=== PATIENT | female | born 1985 | race Caucasian/White ===

== ENCOUNTER 2020-05-02 17:15 | Emergency (ER) | payer OTHER, SELFPAY ==
[2020-05-02 17:22] VITALS: BP 123/83; PULSE 93; RESP 14; TEMP 36.9; O2SAT 100
--- NOTE | 2020-05-02 17:24 | ED.FEMALEGU ---
HPI - Female Genitourinary General Chief complaint: Urogenital-Female Stated complaint: pain with Urination/urgency Time Seen by Provider: 05/02/20 17:24 Source: patient and RN notes reviewed History of Present Illness HPI Narrative: Patient is a 35-year-old female who presents the urgent care with complaints of 3-day history of dysuria, lower abdominal pain and pressure and urgency. Patient states that is worsened today with increased urinary frequency and decreased urine amounts. Patient denies of any fever, nausea, vomiting. Patient has not used anything [id number] for her symptoms. No other acute complaints. No acute distress noted. Patient read the plan of care. Related Data Home Medications Medication Instructions Recorded Confirmed noreth-ethinyl estradiol-iron 1 tablet PO DAILY 05/02/20 05/02/20 [Nirmal Vazquez] Allergies Allergy/AdvReac Type Severity Reaction Status Date / Time No Known Allergies Allergy Verified 05/02/20 17:29 Review of Systems Review of Systems: Narrative: CONSTITUTIONAL: Denies fever, chills, or sweats. EYES: Denies visual changes, redness, or discharge. ENT: Denies rhinorrhea, congestion, sore throat, or otalgia. CARDIOVASCULAR: Denies chest pain, palpitations, or edema. RESPIRATORY: Denies cough or dyspnea. GASTROINTESTINAL: Reports of suprapubic pressure without nausea, vomiting, or diarrhea. GENITOURINARY: Reports of dysuria, urinary frequency, urgency and decreased urine amount SKIN: Denies rash or itching. MUSCULOSKELETAL: Denies back pain, joint pain, or myalgia. NEUROLOGIC: Denies headache, numbness, or weakness. All other systems reviewed are negative, except as documented in HPI. PMFSH Comments At the time of my signature, I reviewed and agree with the nursing past medical, surgical, social, and family history. There is no relevant family history pertinent to the patient complaint. Exam Narrative: Exam Narrative: GENERAL: This is a well-nourished, well-developed patient, in no apparent distress. HEAD: normocephalic, atraumatic. EYES: PERRL. Sclera clear/white. Vision is grossly intact. EARS: External ears normal NOSE: External nose normal with no obvious nasal discharge, nares without redness, no rhinorrhea. THROAT: Mucous membranes moist NECK: Neck supple GASTROINTESTINAL: Abdomen soft, mild suprapubic pressure with palpation, nondistended. Bowel sounds are active. SKIN: warm, intact with no suspicious lesions or rash, good texture and turgor. NEURO: awake, alert, and oriented to person, place and time. There were no obvious focal neurologic abnormalities. EXTREMITIES: No clubbing, cyanosis, or edema. BACK: Negative bilateral CVA tenderness Course Vital Signs Vital signs: Vital Signs Temperature 98.4 F 05/02/20 17:22 Pulse Rate 93 05/02/20 17:22 Respiratory Rate 14 05/02/20 17:22 Blood Pressure 123/83 05/02/20 17:22 Pulse Oximetry 100 05/02/20 17:22 Temperature 98.4 F 05/02/20 17:22 Pulse Rate 93 05/02/20 17:22 Respiratory Rate 14 05/02/20 17:22 Blood Pressure 123/83 05/02/20 17:22 Pulse Oximetry 100 05/02/20 17:22 Reviewed MDM - Female Genitourinary MDM Narrative Medical decision making narrative: Reviewed lab results with the patient. She is aware that her urine analysis was indicative of a urinary tract infection. Advised the patient to complete antibiotic regimen as prescribed. Make sure to eat and drink with the medication. Increase water intake and avoid sugary and caffeinated drinks. Use Pyridium as needed for bladder spasms. If you develop any increase in symptoms associated with fever, nausea, vomiting, abdominal pain, severe back pain?go to the emergency room. We will culture the urine and call you if medication needs to be changed, based on culture results. If you are worried or concerned about your urine culture you may call the facility after 72 hours. Follow-up with your PCP within 2 to 5 days or for worseni
== END 2020-05-02 17:50 | disposition home or self-care (01) ==
PROVIDERS: Emergency Provider Nurse Practitioner Family; PCP Internal Medicine
DX: N39.0 Urinary tract infection, site not specified (principal)
CPT/HCPCS: 81003; 87077; 87086; 87088; 87186; 99203; G0463

== ENCOUNTER 2023-11-15 08:55 | Emergency (ER) | payer OTHER, SELFPAY ==
--- NOTE | 2023-11-15 09:29 | ED.URI ---
HPI - URI/Sore Throat General Chief Complaint: Upper Respiratory Infection Stated Complaint: cough/throat History of Present Illness HPI Narrative: Patient presents with a sore throat nasal congestion. Patient takes Claritin daily for her allergy symptoms. Does have an occasional nonproductive cough that she takes uses Mucinex for no shortness of breath no chest pain no fever. No trouble breathing. No trouble swallowing. Related Data Home Medications Medication Instructions Recorded Confirmed norethin-ethinyl estradiol-iron 1 tablet PO DAILY 05/02/20 05/02/20 0.4 mg-35 mcg(21)/75 mg(7) chew tablet (Nirmal Vazquez) Allergies Allergy/AdvReac Type Severity Reaction Status Date / Time No Known Allergies Allergy Verified 05/02/20 17:29 Review of Systems Review of Systems: CONSTITUTIONAL: Denies chills, or sweats. Reports fever and generalized body aches EYES: Denies visual changes, redness, or discharge. ENT: Denies otalgia. Reports nasal congestion runny nose and sore throat CARDIOVASCULAR: Denies chest pain, palpitations, or edema. RESPIRATORY: Denies dyspnea. Reports occasional cough GASTROINTESTINAL: Denies abdominal pain, nausea, vomiting, or diarrhea. GENITOURINARY: Denies dysuria or hematuria. SKIN: Denies rash or itching. MUSCULOSKELETAL: Denies back pain, joint pain, or myalgia. Reports generalized body aches NEUROLOGIC: Denies headache, numbness, or weakness. PSYCHIATRIC: Denies anxiety or depression. PMFSH Comments At time of signature, agree with nursing past medical, surgical, social and family history. There is no relevant family history pertinent to the presenting complaint Exam Narrative: The patient is a well-developed, well-nourished in no acute distress. SKIN: Skin is warm and dry without erythema, swelling or exudate. There is good turgor. No tenting. HEAD: Atraumatic. Normocephalic. No temporal or scalp tenderness. EYES: Moist and bright. Sclera and conjunctivae normal. No discharge. PERRLA. Extraocular motions intact. Gross visual acuity intact. EARS: Pinna is normal shape and contour. Clear external auditory canals. TM pearly moody with good cone of light, no erythema or suppuration. Bilateral cerumen noted no gross hearing deficit. NOSE: pink, moist mucosa with good air movement. Clear rhinorrhea without nasal flaring. Septum midline. Mouth: moist mucous membranes. THROAT; mild erythema noted to posterior oropharynx with moderate postnasal drainage. Without exudate or ulceration.. Uvula midline. Normal movement of soft palate. NECK: Supple and nontender with full range of motion without discomfort. No meningeal signs. LUNGS: Equal and bilateral breath sounds without wheezes, rales or rhonchi. CHEST: The chest wall is without retractions or use of accessory muscles. HEART: Has a regular rate and rhythm without murmur, gallops, click or rub. ABDOMEN: Soft, nontender with positive active bowel sounds. No rebound tenderness. EXTREMITIES: Without cyanosis, clubbing or edema. Equal 2+ distal pulses and 2 second capillary refill noted. NEUROLOGIC: alert, active, . The patient moves all extremities with normal muscle strength. Normal muscle tone is noted. Normal coordination is noted. NO focal neurological findings noted. Course Course Level of Care: Express Care Visit Vital Signs Vital signs: Discussed with patient rapid strep today was negative we will do a culture and place on antibiotic if the culture is positive. Discussed with patient sore throat is more likely due to postnasal drainage discussed Flonase nasal spray, saline nasal spray and Claritin daily. Encouraged patient to follow-up with primary care provider for further evaluation treatment Discharge Plan Discharge Clinical Impression: Pharyngitis, Allergic rhinitis Patient Disposition: Home, Self-Care Condition: Stable Instructions: Allergies (ED) Additional Instructions: congestion - flonase am and pm fo
[2023-11-15 09:39] VITALS: BP 120/79; PULSE 86; RESP 20; TEMP 36.3; O2SAT 100
== END 2023-11-15 09:43 | disposition home or self-care (01) ==
PROVIDERS: Emergency Provider Nurse Practitioner Family
DX: J02.9 Acute pharyngitis, unspecified (principal); J30.9 Allergic rhinitis, unspecified
CPT/HCPCS: 87081; 87880; 99203; G0463